=== PATIENT | female | born 1975 | race Caucasian/White ===

== ENCOUNTER 2017-07-22 09:27 | Emergency (ER) | payer OTHER ==
[~2017-07-22] VITALS: Ht 165.1 cm; Wt 68.0 kg
[2017-07-22 10:56] LABS: APPEARANCE,URINE Clear (CLEAR); BILIRUBIN,URINE Negative (NEGATIVE); BLOOD, URINE Negative Ery/uL (NEGATIVE); COLOR,URINE Yellow (YELLOW); KETONES,URINE Negative (NEGATIVE); LEUKOCYTE ESTERASE ,URINE Negative (NEGATIVE); NITRITE, URINE Negative (NEGATIVE); PH,URINE 5.5 (5.0-8.0); PROTEIN,URINE Negative (NEGATIVE); UGLUCOSE Negative (NEGATIVE)
[2017-07-22 11:00] LABS: BASOPHILS % (AUTO) 0.5 % (0.0-2.0); EOSINOPHILS % (AUTO) 4.3 % (0.0-6.0); HEMATOCRIT 30 % (33-45); HEMOGLOBIN 9.8 g/dL (11.5-14.8); LYMPHOCYTES # (AUTO) 1.5 /CMM (0.8-4.8); LYMPHOCYTES % (AUTO) 29.7 % (20.0-44.0); MEAN CORPUSCULAR HGB CONC 33 g/dl (31.0-36.0); MEAN CORPUSCULAR VOLUME 71 fL (82-100); MONOCYTES # (AUTO) 0.5 /CMM (0.1-1.30); MONOCYTES % (AUTO) 10.7 % (2.0-12.0); NEUTROPHILS # (AUTO) 2.8 /CMM (1.8-8.9); NEUTROPHILS % (AUTO) 54.8 % (43.0-81.0); PLATELET COUNT (AUTO) 213 /CMM (150-450); RDW COEFFICIENT OF VARIATION 15.3 (11.5-15.0); RED BLOOD CELL COUNT(AUTO) 4.23 MIL/uL (4.0-5.2)
[2017-07-22] MEDS ORDERED: ONDANSETRON HCL/PF 4 MG/2 ML VIAL IVP ONE (11:00)
[2017-07-22] MEDS ORDERED: MORPHINE SULFATE INJ 2 MG/ML DISP.SYRIN IV ONE (11:00)
[2017-07-22] MEDS ORDERED: IV NS 0.9% 1,000 ML BAG IV ONE (11:00)
[2017-07-22] MEDS ORDERED: MORPHINE SULFATE INJ 4 MG/ML DISP.SYRIN ONE (11:01)
[2017-07-22] MEDS ORDERED: ONDANSETRON HCL/PF 4 MG/2 ML VIAL ONE (11:01)
--- NOTE | 2017-07-22 11:05 | NUR ---
ASSUMED CARE OF PT
[2017-07-22 11:07] LABS: BACTERIA,URINE Rare /HPF (None Seen); RBC,URINE 0-2 /HPF (0-2); SQUAMOUS EPITHELIAL CELL,UR Few /HPF (None Seen); WBC,URINE 0-3 /HPF (0-3)
[2017-07-22] MEDS ORDERED: FERR325T23 PO (11:09)
[2017-07-22 11:10] LABS: CALCIUM, SERUM 9.1 mg/dL (8.5-10.1); CARBON DIOXIDE 28 mmol/L (21-32); CHLORIDE 103 mmol/L (98-107); CREATININE 0.8 mg/dL (0.6-1.3); GLUCOSE 91 mg/dL (74-106); POTASSIUM 4.2 mmol/L (3.5-5.1); SODIUM SERUM 137 mmol/L (136-145); UREA NITROGEN, BLOOD 15 mg/dL (7-18)
[2017-07-22 11:14] LABS: INR 0.93 (0.85-1.15)
[2017-07-22 11:16] LABS: ALANINE AMINOTRANSFERASE 63 U/L (12-78); ALBUMIN 3.4 g/dL (3.4-5.0); ALKALINE PHOSPHATASE 274 U/L (46-116); ASPARTATE AMINOTRANSFERASE 61 U/L (15-37); BILIRUBIN,DIRECT 0.3 mg/dL (0.0-0.2); BILIRUBIN,TOTAL 0.7 mg/dL (0.2-1.0); LIPASE 495 U/L (73-393); TOTAL PROTEIN, SERUM 8.5 g/dL (6.4-8.2)
[2017-07-22 11:18] LABS: TROPONIN I < 0.017 ng/mL (0.00-0.056)
--- NOTE | 2017-07-22 12:45 | NUR ---
IV removed. Catheter intact and site benign. Pressure and 4x4 applied to site. No bleeding noted.Patient discharged to home in stable condition. Written and verbal after care instructions given. Patient verbalizes understanding of instruction. PT AMBULATED OUT WITH A STEADY GAIT. PT'S DAUGHTER IS DRIVING PT HOME. VSS.
[2017-07-22 13:01] VITALS: BP 126/85
== END 2017-07-22 13:01 | disposition home or self-care (01) ==
LOC: ER 09:31
DX: K85.90 Acute pancreatitis without necrosis or infection, unspecified (principal); K82.8 Other specified diseases of gallbladder; E03.9 Hypothyroidism, unspecified
CPT/HCPCS: 36415; 71045; 76705; 80048; 80076; 81001; 83605; 83690; 84484; 84703; 85025; 85730; 87040 ×2; 87081; 93005; 96361; 96374; 96375; 99285; A4606; J2270; J2405; J7030; Z7610; 81000-TC

== ENCOUNTER 2023-09-10 04:19 | Inpatient (IN) | payer OTHER ==
[~2023-09-10] VITALS: Ht 165.1 cm; Wt 66.7 kg
[~2023-09-10 04:19] MED LIST: FERR325T23 PO
[2023-09-10] MEDS ORDERED: ONDANSETRON HCL/PF 4 MG/2 ML VIAL ONE (04:51)
[2023-09-10] MEDS ORDERED: PANTOPRAZOLE 40 MG VIAL ONE (04:56)
[2023-09-10 05:00] LABS: APPEARANCE,URINE CLEAR (CLEAR); BILIRUBIN,URINE NEGATIVE (NEGATIVE); BLOOD, URINE NEGATIVE Ery/uL (NEGATIVE); COLOR,URINE YELLOW (YELLOW); KETONES,URINE NEGATIVE (NEGATIVE); LEUKOCYTE ESTERASE ,URINE NEGATIVE (NEGATIVE); NITRITE, URINE NEGATIVE (NEGATIVE); PH,URINE 7.5 (5.0-8.0); PROTEIN,URINE NEGATIVE (NEGATIVE); UGLUCOSE NEGATIVE (NEGATIVE)
[2023-09-10 05:10] LABS: BASOPHILS % (AUTO) 0.4 % (0.0-2.0); EOSINOPHILS # (AUTO) 0.2 K/uL (0.0-0.7); EOSINOPHILS % (AUTO) 5.5 % (0.0-6.0); HEMATOCRIT 27 % (33-45); HEMOGLOBIN 8.9 g/dL (11.5-14.8); LYMPHOCYTES # (AUTO) 0.5 K/uL (0.8-4.8); LYMPHOCYTES % (AUTO) 13.5 % (20.0-44.0); MEAN CORPUSCULAR HEMOGLOBIN 30 PG (26.0-33.0); MEAN CORPUSCULAR HGB CONC 33 g/dl (31.0-36.0); MEAN CORPUSCULAR VOLUME 91 fL (82-100); MONOCYTES # (AUTO) 0.3 K/uL (0.1-1.30); MONOCYTES % (AUTO) 8.1 % (2.0-12.0); NEUTROPHILS # (AUTO) 2.4 K/uL (1.8-8.9); NEUTROPHILS % (AUTO) 72.5 % (43.0-81.0); PLATELET COUNT (AUTO) 68 K/uL (150-450); RED BLOOD CELL COUNT(AUTO) 2.97 MIL/uL (4.0-5.2); RED CELL DISTRIBUTION WIDTH 16.4 % (11.5-15.0); WHITE BLOOD COUNT (AUTO) 3.4 K/uL (4.3-11.0)
[2023-09-10 05:18] LABS: CALCIUM, SERUM 8.1 mg/dL (8.5-10.1); CREATININE 0.7 mg/dL (0.6-1.3); POTASSIUM 3.9 mmol/L (3.5-5.1)
[2023-09-10 05:24] LABS: ALBUMIN 2.5 g/dL (3.4-5.0); BILIRUBIN,DIRECT 1.2 mg/dL (0.0-0.2); BILIRUBIN,TOTAL 1.9 mg/dL (0.2-1.0); TOTAL PROTEIN, SERUM 6.7 g/dL (6.4-8.2)
[2023-09-10 05:25] LABS: INR 1.18 (0.91-1.10); PARTIAL THROMBOPLASTIN TIME 28.8 SEC (24.3-34.3); PROTHROMBIN TIME 12.4 SECS (9.2-11.1)
[2023-09-10] MEDS: IV NS 0.9% 1,000 ML BAG IV ONE (05:37)
[2023-09-10] MEDS: PANTOPRAZOLE 80 MG in IV NS 0.9% 500 ML IV ONE ×2 (05:37→05:53)
[2023-09-10] MEDS: ONDANSETRON HCL/PF 4 MG/2 ML VIAL IVP ONE (05:37)
[2023-09-10] MEDS ORDERED: IOHEXOL-300 100 ML VIAL IV ONE (05:45)
[2023-09-10] MEDS ORDERED: CEFTRIAXONE 1GM BAG (ER ONLY) 50 ML IV ONE (06:16)
[2023-09-10] MEDS ORDERED: OCTREOTIDE 100 MCG/ML VIAL ONE ×2 (06:24→06:46)
[2023-09-10] MEDS: OCTREOTIDE 50 MCG/ML AMPUL IV ONE (06:28)
[2023-09-10] MEDS: CEFTRIAXONE 1GM BAG (ER ONLY) 1 GM/50 ML PIGGYBACK IV ONE (06:33)
[2023-09-10] MEDS ORDERED: OCTREOTIDE 500 MCG/ML VIAL ONE (06:46)
[2023-09-10] MEDS: OCTREOTIDE 1,250 MCG in IV NS 0.9% 250 ML IV ONE (07:06)
[2023-09-10 09:05] LABS: ANISOCYTOSIS 1+; BASOPHILS % (MANUAL) 0 % (0.0-2.0); EOSINOPHILS % (MANUAL) 5 % (0-4); LYMPHOCYTES % (MANUAL) 11 % (16-48); MONOCYTES % (MANUAL) 9 % (0-11.0); NEUTROPHILS % (MANUAL) 75 (42-76); PLATELET ESTIMATE DECREASED
[2023-09-10 12:34] LABS: BASOPHILS % (AUTO) 0.5 % (0.0-2.0); EOSINOPHILS # (AUTO) 0.2 K/uL (0.0-0.7); EOSINOPHILS % (AUTO) 3.3 % (0.0-6.0); HEMATOCRIT 41 % (33-45); HEMOGLOBIN 13.5 g/dL (11.5-14.8); LYMPHOCYTES # (AUTO) 1.5 K/uL (0.8-4.8); LYMPHOCYTES % (AUTO) 30.4 % (20.0-44.0); MEAN CORPUSCULAR HEMOGLOBIN 28 PG (26.0-33.0); MEAN CORPUSCULAR HGB CONC 33 g/dl (31.0-36.0); MEAN CORPUSCULAR VOLUME 87 fL (82-100); MONOCYTES # (AUTO) 0.4 K/uL (0.1-1.30); MONOCYTES % (AUTO) 8.4 % (2.0-12.0); NEUTROPHILS # (AUTO) 2.8 K/uL (1.8-8.9); NEUTROPHILS % (AUTO) 57.4 % (43.0-81.0); PLATELET COUNT (AUTO) 241 K/uL (150-450); RED BLOOD CELL COUNT(AUTO) 4.75 MIL/uL (4.0-5.2); RED CELL DISTRIBUTION WIDTH 15.1 % (11.5-15.0); WHITE BLOOD COUNT (AUTO) 4.8 K/uL (4.3-11.0)
[2023-09-10] MEDS ORDERED: ASCO500T21 PO (13:37)
[2023-09-10] MEDS ORDERED: VITAMIN D3 PO (13:37)
[2023-09-10] MEDS ORDERED: LEVO75TA56 PO (13:37)
[2023-09-10 14:11] VITALS: O2SAT 95
[2023-09-10 14:30] VITALS: BP 113/67; TEMP 98.2; O2SAT 99
[2023-09-10 16:00] VITALS: BP 95/60; TEMP 98.1; O2SAT 99
[2023-09-10] MEDS ORDERED: ANESTHESIA TRAY IN PYXIS 1 EA TRAY MC ONE (16:49)
[2023-09-10] MEDS ORDERED: FENTANYL PF 100MCG/2ML AMPUL ONE (17:40)
[2023-09-10 20:00] VITALS: BP 131/69; TEMP 98.1; O2SAT 99
[2023-09-11 00:01] VITALS: BP 120/78; TEMP 98.4; O2SAT 98
[2023-09-11] MEDS ORDERED: ONDANSETRON HCL/PF 4 MG/2 ML VIAL IV PRN (00:30)
[2023-09-11] MEDS: PANTOPRAZOLE 40 MG VIAL IV SCH (00:31)
[2023-09-11] MEDS: IV NS 0.9% 1,000 ML IV SCH (00:31)
[2023-09-11 05:18] VITALS: BP 118/63; TEMP 98.1; O2SAT 98
[2023-09-11 08:00] VITALS: BP 130/75; TEMP 98.2; O2SAT 99
[2023-09-11] MEDS: CEFTRIAXONE 1 G in IV D5W 50 ML IV SCH (08:38)
[2023-09-11] MEDS: OCTREOTIDE 1,250 MCG in IV NS 0.9% 247.5 ML IV PRN (10:33)
[2023-09-11] MEDS ORDERED: MORPHINE SULFATE INJ 2 MG/ML DISP.SYRIN IV PRN (11:00)
[2023-09-11] MEDS: CEFAZOLIN 2 GM in IV D5W 100 ML IV SCH (12:42)
[2023-09-11 19:13] VITALS: BP 127/72; TEMP 98.1; O2SAT 99
[2023-09-11 20:55] VITALS: BP 117/74; TEMP 98.1; O2SAT 98
[2023-09-12] VITALS: BP 118/68; TEMP 97.9; O2SAT 98
[2023-09-12 04:00] VITALS: BP 105/66; TEMP 97.7; O2SAT 98
[2023-09-12 06:57] LABS: BASOPHILS % (AUTO) 0.6 % (0.0-2.0); EOSINOPHILS # (AUTO) 0.1 K/uL (0.0-0.7); EOSINOPHILS % (AUTO) 3.1 % (0.0-6.0); HEMATOCRIT 26 % (33-45); HEMOGLOBIN 8.9 g/dL (11.5-14.8); LYMPHOCYTES # (AUTO) 0.6 K/uL (0.8-4.8); LYMPHOCYTES % (AUTO) 17.4 % (20.0-44.0); MEAN CORPUSCULAR HEMOGLOBIN 31 PG (26.0-33.0); MEAN CORPUSCULAR HGB CONC 34 g/dl (31.0-36.0); MEAN CORPUSCULAR VOLUME 90 fL (82-100); MONOCYTES # (AUTO) 0.3 K/uL (0.1-1.30); MONOCYTES % (AUTO) 8.3 % (2.0-12.0); NEUTROPHILS # (AUTO) 2.4 K/uL (1.8-8.9); NEUTROPHILS % (AUTO) 70.6 % (43.0-81.0); PLATELET COUNT (AUTO) 71 K/uL (150-450); RED BLOOD CELL COUNT(AUTO) 2.88 MIL/uL (4.0-5.2); RED CELL DISTRIBUTION WIDTH 16.2 % (11.5-15.0); WHITE BLOOD COUNT (AUTO) 3.4 K/uL (4.3-11.0)
[2023-09-12 07:14] LABS: ALBUMIN 2.4 g/dL (3.4-5.0); BILIRUBIN,TOTAL 1.9 mg/dL (0.2-1.0); CALCIUM, SERUM 8.6 mg/dL (8.5-10.1); CREATININE 0.7 mg/dL (0.6-1.3); PHOSPHORUS 2.3 mg/dL (2.5-4.9); POTASSIUM 4.1 mmol/L (3.5-5.1); TOTAL PROTEIN, SERUM 6.5 g/dL (6.4-8.2)
[2023-09-12 08:00] VITALS: BP 106/68; TEMP 98.2; O2SAT 99
[2023-09-12] MEDS ORDERED: IV NS 0.9% 1,000 ML IV PRN (08:28)
[2023-09-12] MEDS: CEFTRIAXONE 1 G in IV D5W 50 ML IV SCH (09:10)
[2023-09-12] MEDS ORDERED: PANT40TA2 PO (11:31)
[2023-09-12 12:00] VITALS: BP 103/65; TEMP 98.2; O2SAT 98
[2023-09-12 15:22] LABS: ANISOCYTOSIS 1+; EOSINOPHILS % (MANUAL) 2 % (0-4); LYMPHOCYTES % (MANUAL) 21 % (16-48); MONOCYTES % (MANUAL) 8 % (0-11.0); NEUTROPHILS % (MANUAL) 69 (42-76); PLATELET ESTIMATE DECREASED
[2023-09-12] MEDS ORDERED: NEUTRA PHOS 1 POWD.PACKET PO ONE (15:30)
== END 2023-09-12 13:00 | disposition home or self-care (01) | DRG 197 ==
LOC: ER 04:22 → TELE 13:44
PROC: 06L28CZ Occlusion of Gastric Vein with Extraluminal Device, Via Natural or Artificial Opening Endoscopic (ICD-10-PCS; principal; 2023-09-10)
PROC: 0DC18ZZ Extirpation of Matter from Upper Esophagus, Via Natural or Artificial Opening Endoscopic (ICD-10-PCS; 2023-09-10)
DX: I86.4 Gastric varices (principal); K85.90 Acute pancreatitis without necrosis or infection, unspecified; D69.6 Thrombocytopenia, unspecified; E44.0 Moderate protein-calorie malnutrition; K76.6 Portal hypertension; E88.09 Other disorders of plasma-protein metabolism, not elsewhere classified; K74.60 Unspecified cirrhosis of liver; W44.8XXA Other foreign body entering into or through a natural orifice, initial encounter; Y92.234 Operating room of hospital as the place of occurrence of the external cause; K31.89 Other diseases of stomach and duodenum; K75.81 Nonalcoholic steatohepatitis (NASH); Y83.8 Other surgical procedures as the cause of abnormal reaction of the patient, or of later complication, without mention of misadventure at the time of the procedure; D64.9 Anemia, unspecified; Z90.710 Acquired absence of both cervix and uterus; Z98.891 History of uterine scar from previous surgery; K80.20 Calculus of gallbladder without cholecystitis without obstruction; Z91.013 Allergy to seafood; K08.119 Complete loss of teeth due to trauma, unspecified class
CPT/HCPCS: 36415; 71045-TC; 76700-TC; 80048-TC; 80053-TC; 80076-TC; 83690-TC; 83735-TC; 84100-TC; 84702-TC; 85025-TC; 85730-TC; 86850-TC; A4223; G0378; J0690; J0696; J2354; J2405; J2704; J3010; J3490; J7030; J7040; J7050; J7060; Q9967

== ENCOUNTER 2024-11-20 15:12 | Emergency (ER) | payer OTHER ==
[~2024-11-20] VITALS: Ht 165.1 cm; Wt 66.7 kg
[~2024-11-20 15:12] MED LIST changes: +ASCO500T21 PO; +LEVO75TA56 PO; +PANT40TA2 PO; +VITAMIN D3 PO
[2024-11-20 15:44] LABS: PLATELET COUNT (AUTO) 91 K/uL (150-450); RED BLOOD CELL COUNT(AUTO) 3.15 MIL/uL (4.0-5.2); RED CELL DISTRIBUTION WIDTH 17.5 % (11.5-15.0); WHITE BLOOD COUNT (AUTO) 4.3 K/uL (4.3-11.0)
[2024-11-20 15:54] LABS: CALCIUM, SERUM 7.7 mg/dL (8.5-10.1); CREATININE 1.4 mg/dL (0.6-1.3); SODIUM SERUM 134 mmol/L (136-145); UREA NITROGEN, BLOOD 20 mg/dL (7-18)
[2024-11-20 16:03] LABS: LACTIC ACID 2.1 mmol/L (0.4-2.0)
[2024-11-20 16:13] LABS: ASPARTATE AMINOTRANSFERASE 72 U/L (15-37); TOTAL PROTEIN, SERUM 5.3 g/dL (6.4-8.2)
[2024-11-20] MEDS: IV NS 0.9% 1,000 ML BAG IV ONE (16:31)
[2024-11-20 18:26] VITALS: BP 120/71; TEMP 98.4; O2SAT 99
[2024-11-20 20:24] LABS: EOSINOPHILS % (MANUAL) 2 % (0-4); LYMPHOCYTES % (MANUAL) 7 % (16-48); MONOCYTES % (MANUAL) 8 % (0-11.0); NEUTROPHILS % (MANUAL) 83 (42-76); PLATELET ESTIMATE DECREASED
== END 2024-11-20 18:27 | disposition home or self-care (01) ==
LOC: ER 15:15
DX: R55 Syncope and collapse (principal); R42 Dizziness and giddiness; R19.7 Diarrhea, unspecified; R11.10 Vomiting, unspecified; R07.9 Chest pain, unspecified; R06.00 Dyspnea, unspecified; Z79.899 Other long term (current) drug therapy; Z90.710 Acquired absence of both cervix and uterus; Z91.013 Allergy to seafood; Z87.19 Personal history of other diseases of the digestive system
CPT/HCPCS: 99285; 96360; 71045; 93005; 85027; 80048; 83605 ×2; 80076; 85007; 36415; 84484 ×2; 83880; J7030